=== PATIENT | female | born 1930 | race Caucasian/White ===

== ENCOUNTER 2019-03-15 14:10 | Inpatient (IN) | payer MEDICARE, OTHER ==
[~2019-03-15] VITALS: Ht 154.9 cm; Wt 53.3 kg
[2019-03-15] MEDS ORDERED: IV NORMAL SALINE 1000ML BAG 1,000 ML IV ONE ×2 (15:00→20:30)
[2019-03-15 15:10] LABS: BILIRUBIN,URINE MODERATE (NEG); CLARITY,URINE CLEAR; COLOR,URINE YELLOW; NITRITE,URINE NEGATIVE (NEG); PROTEIN,URINE 30 mg/dL (NEG-TRACE)
[2019-03-15 15:32] LABS: BASO # 0.1 x10^3/uL (0.0-0.2); BASO % 1 % (0-3); EOS % 0 % (0-3); HEMATOCRIT 38.7 % (36.0-47.0); HEMOGLOBIN 12.3 g/dL (12.0-15.5); LYMPH % 10 % (24-48); MEAN CORPUSCULAR HEMOGLOBIN 28 pg (25-35); MEAN CORPUSCULAR HGB CONC 32 g/dL (31-37); MEAN CORPUSCULAR VOLUME 87 fL (79-100); MONO # 0.6 x10^3/uL (0.0-1.1); MONO % 6 % (0-9); NEUT # 8.8 x10^3uL (1.8-7.7); NEUT % 84 % (31-73); PLATELET COUNT 288 x10^3/uL (140-400); RED BLOOD COUNT 4.46 x10^6/uL (3.50-5.40); RED CELL DISTRIBUTION WIDTH 16.4 % (11.5-14.5); WHITE BLOOD COUNT 10.5 x10^3/uL (4.0-11.0)
[2019-03-15 15:33] LABS: INFLUENZA A PATIENT NEGATIVE (NEGATIVE); INFLUENZA B PATIENT NEGATIVE (NEGATIVE)
[2019-03-15 15:35] LABS: RBC,URINE 0 /HPF (0-2)
[2019-03-15 15:36] LABS: BACTERIA,URINE 0 /HPF (0-FEW); SQUAMOUS EPITHELIAL CELL,UR MOD /LPF; WBC,URINE RARE /HPF (0-4)
[2019-03-15 15:45] LABS: CALCIUM 8.9 mg/dL (8.5-10.1); CREATININE 0.9 mg/dL (0.6-1.0); GFR 59.2; POTASSIUM 4.1 mmol/L (3.5-5.1)
--- NOTE | 2019-03-15 15:48 | RAD ---
CHEST AP ONLY History: found on floor. No prior study for comparison. Heart size not enlarged. Aorta is tortuous. There is some retrocardiac density could be the the aorta, or possibly hiatal hernia. Difficult to exclude infiltrate in the medial left lung base. Lungs are otherwise clear without consolidation. No pneumothorax. No pleural effusion. Regional skeleton is grossly intact. IMPRESSION: 1. No definite consolidating infiltrate. 2. Retrocardiac density is nonspecific, could be due to ectatic tortuous aorta or hiatal hernia. Electronically signed by: Luis Antonio Martinez MD (03/15/2019 3:45 PM) [facility]
[2019-03-15 15:52] LABS: ALBUMIN 3.2 g/dL (3.4-5.0); ALBUMIN/GLOBULIN RATIO 0.9 (1.0-1.7); MAGNESIUM 2.7 mg/dL (1.8-2.4); TOTAL PROTEIN 6.7 g/dL (6.4-8.2)
--- NOTE | 2019-03-15 16:20 | RAD ---
Examination: CT HEAD AND CERVICAL SPINE WO History: Found on floor. Altered mental status. Comparison/Correlation: None Findings: Axial images of the head and cervical spine were obtained without contrast. Sagittal and coronal reformatted images of the cervical spine were provided. Atrophy and chronic ischemic changes white matter noted. Small bilateral odin bullosa noted. No depressed skull fracture. Atlantoaxial joint degenerative change is present. Moderate to 4-5 disc space narrowing is present. Neural foramina are patent. Degenerative remodeling of the left temporomandibular joint noted. Soft tissues are unremarkable. Impression: No acute process. Mild degenerative changes of the cervical spine for the patient's age. PQRS Compliance Statement: One or more of the following individualized dose reduction techniques were utilized for this examination: 1. Automated exposure control 2. Adjustment of the mA and/or kV according to patient size 3. Use of iterative reconstruction technique Electronically signed by: Karan Hayden MD (03/15/2019 4:17 PM) [facility]
--- NOTE | 2019-03-15 16:27 | EKG ---
[facility] [address] [place] [address] Test Date: 2019-03-15 Test Time: 15:47:46 Pat Name: VENITA SCHREIBER Department: Room: Gender: F Personal Counselor: : [phone] Requested By: SCTOT KING Order Number: [id number] Reading MD: Deric Fitch Measurements Intervals [place] Rate: 84 P: -34 MT: 166 QRS: -23 QRSD: 86 T: 109 QT: 402 QTc: 479 Interpretive Statements SINUS RHYTHM ATRIAL PREMATURE COMPLEX(ES) LEFTWARD AXIS NONSPECIFIC ST-T WAVE CHANGES. Electronically Signed On 03-21-2019 11:34:17 CDT by Deric Fitch
--- NOTE | 2019-03-15 16:30 | PHYS DOC ---
Past Medical History Past Medical History: No Pertinent History (SCOTT KING APRN) Past Surgical History: No Surgical History (SCOTT KING APRN) Alcohol Use: None Drug Use: None (SCOTT KING APRN) Adult General Chief Complaint Chief Complaint: MECHANICAL FALL HPI HPI 88-year-old female presents to ER via EMS from her residence after being found on the floor by her sister per EMS. No family at bedside at time of arrival and exam. Patient is alert to herself and is repetitively asking for a cup of tea. She is denying any pain. EMS reports sister had found patient this morning and had not seemed patient for approximately 5-7 days. Patient lives at home alone and has no reported past medical history. EMS reported patient was found in urine and feces as she had been incontinent. (SCOTT KING APRN) Review of Systems Review of Systems Unable to obtain review of systems due to patient's current mental status-she is denying any pain however is alert to self only (SCOTT KING APRN) Current Medications Current Medications Current Medications Medications (Trade) Dose Ordered Sig/Dede Start Time Stop Time Status Last Admin Dose Admin Sodium Chloride 1,000 ml @ 1,000 mls/hr 1X ONCE 03/15/19 15:00 03/15/19 15:59 DC 03/15/19 15:06 1,000 MLS/HR (ARELI ALEJANDRE MD) Allergies Allergies Allergies Coded Allergies Type Severity Reaction Last Updated Verified No Known Drug Allergies 03/15/19 No (ARELI ALEJANDRE MD) Physical Exam Physical Exam Constitutional: Frail/fatigued appearance; no acute distress, non-toxic appearance. Strong urine odor on pt. Clear speech HENT: Normocephalic, atraumatic, bilateral ears normal, mucous membranes pale/dr y, no oral injury, nose normal. [] Eyes: 2mm PERRLA, no nystagmus, conjunctiva normal, no discharge. [] Neck: Normal range of motion, no tenderness or palp deformity mid cspine, supple, no stridor. [] Cardiovascular: Heart rate regular rhythm, no murmur [] Lungs & Thorax: Bilateral breath sounds clear to auscultation- resp. equal/nonlabored. No chest tenderness Abdomen: Bowel sounds normal, soft, no tenderness, no masses, no pulsatile masses. [] Skin: Warm, dry, no erythema, no rash. [] Back: No palp deformity of mid line spine- no visible injury, no CVA tenderness. [] Extremities: Pelvis non-tender. No tenderness, no cyanosis, no clubbing, ROM intact- slow purposeful movements, no edema. 2+ bilat. radial/2+ bilat. dorsalis pedis. Ecchymosis to lt lateral shoulder/elbow- full ROM of both sites. No palp. deformity Neurologic: Alert and oriented X 1, normal motor function, normal sensory functi on, no focal deficits noted. [] Psychologic: Affect normal, mood normal- no anxiety/restlessness. [] (REFFITT,SCOTT Fiore APRN) Current Patient Data Vital Signs Vital Signs Date Time Temp Pulse Resp B/P (MAP) Pulse Ox O2 Delivery O2 Flow Rate FiO2 03/15/19 14:10 97.6 98 16 104/76 (85) 97 Room Air 97.6 (ARELI ALEJANDRE MD) Lab Values Laboratory Tests Test 03/15/19 14:59 03/15/19 15:02 03/15/19 15:20 Sodium Level 146 mmol/L (136-145) H Potassium Level 4.1 mmol/L (3.5-5.1) Chloride Level 104 mmol/L (98-107) Carbon Dioxide Level 24 mmol/L (21-32) Anion Gap 18 (6-14) H Blood Urea Nitrogen 50 mg/dL (7-20) H Creatinine 0.9 mg/dL (0.6-1.0) Estimated GFR (Cockcroft-Gault) 59.2 BUN/Creatinine Ratio 56 (6-20) H Glucose Level 141 mg/dL (70-99) H Calcium Level 8.9 mg/dL (8.5-10.1) Magnesium Level 2.7 mg/dL (1.8-2.4) H Total Bilirubin 1.0 mg/dL (0.2-1.0) Aspartate Amino Transferase (AST) 49 U/L (15-37) H Alanine Aminotransferase (ALT) 37 U/L (14-59) Alkaline Phosphatase 141 U/L (46-116) H Creatine Kinase 210 U/L (26-192) H Creatine Kinase MB (Mass) 5.8 ng/mL (0.0-3.6) H Creatine Kinase MB Relative Index 2.8 % (0-4) Total Protein 6.7 g/dL (6.4-8.2) Albumin 3.2 g/dL (3.4-5.0) L Albumin/Globulin Ratio 0.9 (1.0-1.7) L Urine Collection Type U cath Urine Color Yellow Urine Clarity Clear Urine pH 6.0 Urine Specific [place] 1.025 Urine Protein 30 mg/dL (NEG-TRACE) Urine Glucose (UA) Negative mg/dL (NEG) Urine Ketones (Stick) 40 mg/dL (NEG) Urine Blood Negative (NEG) Urine Nitrite Negative (NEG) Urine Bilirubin Moderate (NEG) Urine Urobilinogen Dipstick 1.0 mg/dL (0.2 mg/dL) Urine Leukocyte Esterase Negative (NEG) Urine RBC 0 /HPF (0-2) Urine WBC Rare /HPF (0-4) Urine Squamous Epithelial Cells Mod /LPF Urine Bacteria 0 /HPF (0-FEW) Urine Mucus Mod /LPF Influenza Type A Antigen Negative (NEGATIVE) Influenza Type B Antigen Negative (NEGATIVE) White Blood Count 10.5 x10^3/uL (4.0-11.0) Red Blood Count 4.46 x10^6/uL (3.50-5.40) Hemoglobin 12.3 g/dL (12.0-15.5) Hematocrit 38.7 % (36.0-47.0) Mean Corpuscular Volume 87 fL (79-100) Mean Corpuscular Hemoglobin 28 pg (25-35) Mean Corpuscular Hemoglobin Concent 32 g/dL (31-37) Red Cell Distribution Width 16.4 % (11.5-14.5) H Platelet Count 288 x10^3/uL (140-400) Neutrophils (%) (Auto) 84 % (31-73) H Lymphocytes (%) (Auto) 10 % (24-48) L Monocytes (%) (Auto) 6 % (0-9) Eosinophils (%) (Auto) 0 % (0-3) Basophils (%) (Auto) 1 % (0-3) Neutrophils # (Auto) 8.8 x10^3uL (1.8-7.7) H Lymphocytes # (Auto) 1.0 x10^3/uL (1.0-4.8) Monocytes # (Auto) 0.6 x10^3/uL (0.0-1.1) Eosinophils # (Auto) 0.0 x10^3/uL (0.0-0.7) Basophils # (Auto) 0.1 x10^3/uL (0.0-0.2) Lactic Acid Level 1.7 mmol/L (0.4-2.0) Troponin I Quantitative 0.027 ng/mL (0.000-0.055) Laboratory Tests 03/15/19 15:20 Laboratory Tests 03/15/19 14:59 (ARELI ALEJANDRE MD) EKG EKG EKG obtained 03/15/19 at [address] Alejandre Sinus rhythm PVCs Ltward axis Rate 84 No STEMI (REFFITT,SCOTT Fiore APRN) Radiology/Procedures Radiology/Procedures PROCEDURE: CHEST AP ONLY CHEST AP ONLY History: found on floor. No prior study for comparison. Heart size not enlarged. Aorta is tortuous. There is some retrocardiac density could be the the aorta, or possibly hiatal hernia. Difficult to exclude infiltrate in the medial left lung base. Lungs are otherwise clear without consolidation. No pneumothorax. No pleural effusion. Regional skeleton is grossly intact. IMPRESSION: 1. No definite consolidating infiltrate. 2. Retrocardiac density is nonspecific, could be due to ectatic tortuous aorta or hiatal hernia. Electronically signed by: Luis Antonio Martinez MD (03/15/2019 3:45 PM) [facility] DICTATED and SIGNED BY: LUIS ANTONIO MARTINEZ MD DATE: 03/15/19 1546 PROCEDURE: CT HEAD AND CERVICAL SPINE WO Examination: CT HEAD AND CERVICAL SPINE WO History: Found on floor. Altered mental status. Comparison/Correlation: None Findings: Axial images of the head and cervical spine were obtained without contrast. Sagittal and coronal reformatted images of the cervical spine were provided. Atrophy and chronic ischemic changes white matter noted. Small bilateral odin bullosa noted. No depressed skull fracture. Atlantoaxial joint degenerative change is present. Moderate to 4-5 disc space narrowing is present. Neural foramina are patent. Degenerative remodeling of the left temporomandibular joint noted. Soft tissues are unremarkable. Impression: No acute process. Mild degenerative changes of the cervical spine for the patient's age. PQRS Compliance Statement: One or more of the following individualized dose reduction techniques were utilized for this examination: 1. Automated exposure control 2. Adjustment of the mA and/or kV according to patient size 3. Use of iterative reconstruction technique Electronically signed by: Karan Lemon MD (03/15/2019 4:17 PM) [facility] DICTATED and SIGNED BY: KARAN LEMON MD DATE: 03/15/19 1617 (SCOTT KING APRN) Course & Med Decision Making Course & Med Decision Making Pertinent Labs and Imaging studies reviewed. (See chart for details) 1550: Pt was evaluated in the ER after she was found on the floor by her friend and had change in mental status. Patient had CT, x-ray, and labs obtained. EKG with no acute ST elevation or STEMI and troponin was 0.027- CK was slightly elevated at 210. WBCs and lactic acid normal limits. Cr NL at 0.9. No infection on UA. Head and C-spine imaging when no acute findings. Pt was given IV fluid bolus while in the ER and her vital signs have been stable. Spoke with Dr. Malcolm, hospitalist and discussed pt's case and admit plan. Will admit to their services for further monitoring and care. Will consult neurology with admit orde rs. Pt has had no change in MS while in the ER- she is alert to self and continues to deny any pain. She has had ROM in all extremities w/slow purposeful movements. She has had no focal weakness. RN reported pt's friend had arrived and she isn't pt's sister she is a close friend and she reported pt is on no daily medications and has no past med hx. She reports pt is independent living and typically A&Ox3. This provider went to room to discuss pt's case with pt's friend and she was not in room. Swallow screen study performed at bedside by RN while in the ER and she reported patient was able to drink fluids without choking, coughing, or difficulty swallowing. Will place order for cardiac diet with admit orders. (SCOTT KING APRN) Course & Med Decision Making I was available for consultation regarding this patient's care. I did not see or evaluate the patient unless otherwise specified. (ARELI ALEJANDRE MD) Dragon Disclaimer Dragon Disclaimer This electronic medical record was generated, in whole or in part, using a voice recognition dictation system. (SCOTT KING APRN) Departure Departure Impression: Primary Impression: Altered mental status Disposition: 09 ADMITTED INPATIENT Admitting Physician: Loyda Malcolm (SCOTT KING APRN) Condition: STABLE Referrals: UNKNOWN PCP NAME (PCP) SCOTT KING APRN Mar 15, 2019 16:30 ARELI ALEJANDRE MD Mar 15, 2019 18:05
--- NOTE | 2019-03-15 18:35 | NUR ---
The patient, VENITA SCHREIBER, 88 y/o, F admitted by CLARI SETH MD, was given written information regarding hospital policies, unit procedures and contact persons. Pt was oriented to the room, given water and hot tea w/sugar, and educated national insurance officer light, hospital policies and protocols. Valuables were not checked at time of arrival to floor, as patient required assistance to transfer and to remain comfortable. VS stable, report given to plant operator/shift supervisor YOVANI Henry at bedside while pt was settling in.
[2019-03-15 18:42] VITALS: BP 131/62
[2019-03-15 19:23] VITALS: BP 108/46
--- NOTE | 2019-03-15 20:22 | PDOC1 ---
History and Physical Date of Admission Date of Admission DATE: 03/15/19 TIME: 20:15 Source Source: Chart review, Patient History of Present Illness History of Present Illness Apolonia is a 88-year-old female presents to ER via EMS from her residence after being "found on the floor by her sister" per EMS. However, she tells me that she has no sister. She is unsure of the date or where she is or her age, she is correct on her name only, she has a complaint of right leg pain, but asked for tea and cheese and crackers. she lives alone at home and may have been down for days, unsure of timeline, she has been cleaned since appearing in ER, she was covered in excrement when she arrived. Past Medical History Cardiovascular: No pertinent hx Endocrine: Diabetes Dermatology: No pertinent hx Family History Family History: Family History Unknown Social History Smoke: No ALCOHOL: none Current Problem List Problem List Problems Medical Problems: (1) Altered mental status Status: Acute Current Medications Current Medications Current Medications Sodium Chloride 1,000 ml @ 1,000 mls/hr 1X ONCE IV Last administered on 03/15/19at 15:06; Start 03/15/19 at 15:00; Stop 03/15/19 at 15:59; Status DC Allergies Allergies: Coded Allergies: No Known Drug Allergies (Unverified , 03/15/19) ROS Review of System unable, dementia Physical Exam General: Alert, Cooperative, Other (confused, not oriented) HEENT: PERRLA, EOMI Lungs: Clear to auscultation, Normal air movement Heart: no gallops, no murmurs Abdomen: Soft Rectal Exam: not examined Extremities: No clubbing, No edema Skin: No significant lesion Neuro: Normal speech, Sensation intact, Cranial nerves 3-12 NL Vitals Vitals Vital Signs Date Time Temp Pulse Resp B/P (MAP) Pulse Ox O2 Delivery O2 Flow Rate FiO2 03/15/19 19:23 98.2 85 16 108/46 (66) 95 Room Air 98.2 Labs Labs Laboratory Tests Test 03/15/19 14:59 03/15/19 15:02 03/15/19 15:20 03/15/19 18:30 Sodium Level 146 mmol/L (136-145) Potassium Level 4.1 mmol/L (3.5-5.1) Chloride Level 104 mmol/L (98-107) Carbon Dioxide Level 24 mmol/L (21-32) Anion Gap 18 (6-14) Blood Urea Nitrogen 50 mg/dL (7-20) Creatinine 0.9 mg/dL (0.6-1.0) Estimated GFR (Cockcroft-Gault) 59.2 BUN/Creatinine Ratio 56 (6-20) Glucose Level 141 mg/dL (70-99) Calcium Level 8.9 mg/dL (8.5-10.1) Magnesium Level 2.7 mg/dL (1.8-2.4) Total Bilirubin 1.0 mg/dL (0.2-1.0) Aspartate Amino Transf (AST/SGOT) 49 U/L (15-37) Alanine Aminotransferase (ALT/SGPT) 37 U/L (14-59) Alkaline Phosphatase 141 U/L (46-116) Creatine Kinase 210 U/L (26-192) Creatine Kinase MB (Mass) 5.8 ng/mL (0.0-3.6) Creatine Kinase MB Relative Index 2.8 % (0-4) Total Protein 6.7 g/dL (6.4-8.2) Albumin 3.2 g/dL (3.4-5.0) Albumin/Globulin Ratio 0.9 (1.0-1.7) Urine Collection Type U cath Urine Color Yellow Urine Clarity Clear Urine pH 6.0 Urine Specific [place] 1.025 Urine Protein 30 mg/dL (NEG-TRACE) Urine Glucose (UA) Negative mg/dL (NEG) Urine Ketones (Stick) 40 mg/dL (NEG) Urine Blood Negative (NEG) Urine Nitrite Negative (NEG) Urine Bilirubin Moderate (NEG) Urine Urobilinogen Dipstick 1.0 mg/dL (0.2 mg/dL) Urine Leukocyte Esterase Negative (NEG) Urine RBC 0 /HPF (0-2) Urine WBC Rare /HPF (0-4) Urine Squamous Epithelial Cells Mod /LPF Urine Bacteria 0 /HPF (0-FEW) Urine Mucus Mod /LPF Influenza Type A Antigen Negative (NEGATIVE) Influenza Type B Antigen Negative (NEGATIVE) White Blood Count 10.5 x10^3/uL (4.0-11.0) Red Blood Count 4.46 x10^6/uL (3.50-5.40) Hemoglobin 12.3 g/dL (12.0-15.5) Hematocrit 38.7 % (36.0-47.0) Mean Corpuscular Volume 87 fL (79-100) Mean Corpuscular Hemoglobin 28 pg (25-35) Mean Corpuscular Hemoglobin Concent 32 g/dL (31-37) Red Cell Distribution Width 16.4 % (11.5-14.5) Platelet Count 288 x10^3/uL (140-400) Neutrophils (%) (Auto) 84 % (31-73) Lymphocytes (%) (Auto) 10 % (24-48) Monocytes (%) (Auto) 6 % (0-9) Eosinophils (%) (Auto) 0 % (0-3) Basophils (%) (Auto) 1 % (0-3) Neutrophils # (Auto) 8.8 x10^3uL (1.8-7.7) Lymphocytes # (Auto) 1.0 x10^3/uL (1.0-4.8) Monocytes # (Auto) 0.6 x10^3/uL (0.0-1.1) Eosinophils # (Auto) 0.0 x10^3/uL (0.0-0.7) Basophils # (Auto) 0.1 x10^3/uL (0.0-0.2) Lactic Acid Level 1.7 mmol/L (0.4-2.0) Troponin I Quantitative 0.027 ng/mL (0.000-0.055) Glucose (Fingerstick) 388 mg/dL (70-99) Laboratory Tests Test 03/15/19 14:59 03/15/19 15:02 03/15/19 15:20 03/15/19 18:30 Sodium Level 146 mmol/L (136-145) Potassium Level 4.1 mmol/L (3.5-5.1) Chloride Level 104 mmol/L (98-107) Carbon Dioxide Level 24 mmol/L (21-32) Anion Gap 18 (6-14) Blood Urea Nitrogen 50 mg/dL (7-20) Creatinine 0.9 mg/dL (0.6-1.0) Estimated GFR (Cockcroft-Gault) 59.2 BUN/Creatinine Ratio 56 (6-20) Glucose Level 141 mg/dL (70-99) Calcium Level 8.9 mg/dL (8.5-10.1) Magnesium Level 2.7 mg/dL (1.8-2.4) Total Bilirubin 1.0 mg/dL (0.2-1.0) Aspartate Amino Transf (AST/SGOT) 49 U/L (15-37) Alanine Aminotransferase (ALT/SGPT) 37 U/L (14-59) Alkaline Phosphatase 141 U/L (46-116) Creatine Kinase 210 U/L (26-192) Creatine Kinase MB (Mass) 5.8 ng/mL (0.0-3.6) Creatine Kinase MB Relative Index 2.8 % (0-4) Total Protein 6.7 g/dL (6.4-8.2) Albumin 3.2 g/dL (3.4-5.0) Albumin/Globulin Ratio 0.9 (1.0-1.7) Urine Collection Type U cath Urine Color Yellow Urine Clarity Clear Urine pH 6.0 Urine Specific [place] 1.025 Urine Protein 30 mg/dL (NEG-TRACE) Urine Glucose (UA) Negative mg/dL (NEG) Urine Ketones (Stick) 40 mg/dL (NEG) Urine Blood Negative (NEG) Urine Nitrite Negative (NEG) Urine Bilirubin Moderate (NEG) Urine Urobilinogen Dipstick 1.0 mg/dL (0.2 mg/dL) Urine Leukocyte Esterase Negative (NEG) Urine RBC 0 /HPF (0-2) Urine WBC Rare /HPF (0-4) Urine Squamous Epithelial Cells Mod /LPF Urine Bacteria 0 /HPF (0-FEW) Urine Mucus Mod /LPF Influenza Type A Antigen Negative (NEGATIVE) Influenza Type B Antigen Negative (NEGATIVE) White Blood Count 10.5 x10^3/uL (4.0-11.0) Red Blood Count 4.46 x10^6/uL (3.50-5.40) Hemoglobin 12.3 g/dL (12.0-15.5) Hematocrit 38.7 % (36.0-47.0) Mean Corpuscular Volume 87 fL (79-100) Mean Corpuscular Hemoglobin 28 pg (25-35) Mean Corpuscular Hemoglobin Concent 32 g/dL (31-37) Red Cell Distribution Width 16.4 % (11.5-14.5) Platelet Count 288 x10^3/uL (140-400) Neutrophils (%) (Auto) 84 % (31-73) Lymphocytes (%) (Auto) 10 % (24-48) Monocytes (%) (Auto) 6 % (0-9) Eosinophils (%) (Auto) 0 % (0-3) Basophils (%) (Auto) 1 % (0-3) Neutrophils # (Auto) 8.8 x10^3uL (1.8-7.7) Lymphocytes # (Auto) 1.0 x10^3/uL (1.0-4.8) Monocytes # (Auto) 0.6 x10^3/uL (0.0-1.1) Eosinophils # (Auto) 0.0 x10^3/uL (0.0-0.7) Basophils # (Auto) 0.1 x10^3/uL (0.0-0.2) Lactic Acid Level 1.7 mmol/L (0.4-2.0) Troponin I Quantitative 0.027 ng/mL (0.000-0.055) Glucose (Fingerstick) 388 mg/dL (70-99) VTE Prophylaxis Ordered VTE Prophylaxis Devices: No VTE Pharmacological Prophylaxi: Yes Assessment/Plan Assessment/Plan found down right leg pain, PT and ot and pain control dementia, atrophy and chronic ischemic change on CT scan thrush unsafe at home, CLARI Winter MD Mar 15, 2019 20:22
[2019-03-15] MEDS ORDERED: IBUPROFEN 400 MG TABLET. PO PRN (20:30)
[2019-03-15] MEDS ORDERED: ACETAMINOPHEN 325 MG TABLET. PO PRN (20:30)
[2019-03-15] MEDS ORDERED: DEXTROSE 50% 25 GM / 50ML DISP.SYRIN. IV PRN (20:30)
[2019-03-15] MEDS: INSULIN GLARGINE 300 UNITS/3 ML INSULN.PEN. SQ SCH (21:00)
[2019-03-15] MEDS: PATCH REMOVAL. MC SCH (21:00)
[2019-03-15] MEDS: CLOTRIMAZOLE 10 MG TROCHE. MM SCH (22:11)
[2019-03-15 23:20] VITALS: BP 104/48
--- NOTE | 2019-03-16 00:23 | NUR ---
Assumed care of patient at 1838. VS stable, assessment complete- bruise to left elbow, left shoulder, and right thigh. patient states she has no medical history and takes no medications at home. Patient complains of bilateral chronic knee pain-but states " i do not take any medications, not even for pain, pills scare me". Pt states she has no support system but has a friend that comes over to check on her every now and then. Upon arrival patients hair was matted to head and had lots of debris in it. Patient stated "when i fell i wasn't able to brush my teeth or hair because i couldn't get up" when asked how long she had been on the ground she stated "i don't know". This RN bathed patient and attempted to wash hair and brush out some of the matted areas. Patient stated repeatedly " i am sorry im such a nuisance" reassured patient that she was not a nuisance re oriented patient to room and explained how to call for assistance. bed in low locked position, bed alarm on, call light with in reach.
[2019-03-16 03:18] VITALS: BP 145/49
[2019-03-16 05:56] LABS: BASO # 0.1 x10^3/uL (0.0-0.2); BASO % 1 % (0-3); EOS # 0.1 x10^3/uL (0.0-0.7); EOS % 1 % (0-3); LYMPH # 1.6 x10^3/uL (1.0-4.8); LYMPH % 19 % (24-48); MEAN CORPUSCULAR HEMOGLOBIN 28 pg (25-35); MEAN CORPUSCULAR HGB CONC 32 g/dL (31-37); MEAN CORPUSCULAR VOLUME 87 fL (79-100); MONO # 0.6 x10^3/uL (0.0-1.1); MONO % 7 % (0-9); NEUT # 6.4 x10^3uL (1.8-7.7); NEUT % 72 % (31-73); PLATELET COUNT 256 x10^3/uL (140-400); RED BLOOD COUNT 3.93 x10^6/uL (3.50-5.40); RED CELL DISTRIBUTION WIDTH 16.5 % (11.5-14.5); WHITE BLOOD COUNT 8.8 x10^3/uL (4.0-11.0)
[2019-03-16] MEDS: CLOTRIMAZOLE 10 MG TROCHE. MM SCH ×5 (06:00→21:52)
[2019-03-16 06:02] LABS: ALBUMIN 2.7 g/dL (3.4-5.0); ALBUMIN/GLOBULIN RATIO 0.8 (1.0-1.7); CALCIUM 8.3 mg/dL (8.5-10.1); CREATININE 0.8 mg/dL (0.6-1.0); GFR 67.8; POTASSIUM 3.5 mmol/L (3.5-5.1); TOTAL BILIRUBIN 0.8 mg/dL (0.2-1.0); TOTAL PROTEIN 6.2 g/dL (6.4-8.2)
[2019-03-16 07:00] VITALS: BP 143/64
[2019-03-16] MEDS: INSULIN LISPRO 300 UNITS/3 ML INSULN.PEN. SQ SCH ×3 (08:00→17:00)
[2019-03-16] MEDS ORDERED: ONDANSETRON PF 4 MG/2 ML VIAL. IV PRN (08:45)
[2019-03-16] MEDS ORDERED: ACETAMINOPHEN 500 MG TABLET PO PRN (08:45)
[2019-03-16] MEDS ORDERED: ONDANSETRON ODT 4 MG TAB.RAPDIS. PO PRN (08:45)
[2019-03-16] MEDS: LIDOCAINE (700MG/PATCH) PATCH. TD SCH (09:00)
--- NOTE | 2019-03-16 10:00 | NUR ---
PATIENT REFUSED ALL MEDS.
--- NOTE | 2019-03-16 10:53 | PDOC ---
PROGRESS NOTES Chief Complaint Chief Complaint Noninjury fall at home-covered in excrement Encephalopathy, I think this is her baseline-alert and oriented to place and self but cannot answer complicated questions thoroughly No home meds to reconcile Thrush, oral Unsafe home History of Present Illness History of Present Illness She is alert and oriented to self and place but once I ask her, complicated questions, she is not accurate She does not complain of anything except she wants to go home She might need encouraging to go to rehabilitation Social work has been consulted So far lytes and imaging reassuring Plan: social work for placement-unsafe at home I'm unsure why she is CVC can transfer out of CVC Other supportive meds Can check a CPK rule out rhabdo Vitals Vitals Vital Signs Date Time Temp Pulse Resp B/P (MAP) Pulse Ox O2 Delivery O2 Flow Rate FiO2 03/16/19 08:00 Room Air 03/16/19 07:00 98.0 76 14 143/64 (90) 94 98.0 Physical Exam General: Alert, Cooperative, Other (confused, not oriented) Heart: Regular rate, Normal S1, Normal S2 Lungs: Other (poor effort decreased breath sounds) Abdomen: Soft Extremities: No clubbing, No edema Skin: No significant lesion Labs LABS Laboratory Tests Test 03/15/19 14:59 03/15/19 15:02 03/15/19 15:20 03/15/19 18:30 Sodium Level 146 mmol/L (136-145) Potassium Level 4.1 mmol/L (3.5-5.1) Chloride Level 104 mmol/L (98-107) Carbon Dioxide Level 24 mmol/L (21-32) Anion Gap 18 (6-14) Blood Urea Nitrogen 50 mg/dL (7-20) Creatinine 0.9 mg/dL (0.6-1.0) Estimated GFR (Cockcroft-Gault) 59.2 BUN/Creatinine Ratio 56 (6-20) Glucose Level 141 mg/dL (70-99) Calcium Level 8.9 mg/dL (8.5-10.1) Magnesium Level 2.7 mg/dL (1.8-2.4) Total Bilirubin 1.0 mg/dL (0.2-1.0) Aspartate Amino Transf (AST/SGOT) 49 U/L (15-37) Alanine Aminotransferase (ALT/SGPT) 37 U/L (14-59) Alkaline Phosphatase 141 U/L (46-116) Creatine Kinase 210 U/L (26-192) Creatine Kinase MB (Mass) 5.8 ng/mL (0.0-3.6) Creatine Kinase MB Relative Index 2.8 % (0-4) Total Protein 6.7 g/dL (6.4-8.2) Albumin 3.2 g/dL (3.4-5.0) Albumin/Globulin Ratio 0.9 (1.0-1.7) Urine Collection Type U cath Urine Color Yellow Urine Clarity Clear Urine pH 6.0 Urine Specific [place] 1.025 Urine Protein 30 mg/dL (NEG-TRACE) Urine Glucose (UA) Negative mg/dL (NEG) Urine Ketones (Stick) 40 mg/dL (NEG) Urine Blood Negative (NEG) Urine Nitrite Negative (NEG) Urine Bilirubin Moderate (NEG) Urine Urobilinogen Dipstick 1.0 mg/dL (0.2 mg/dL) Urine Leukocyte Esterase Negative (NEG) Urine RBC 0 /HPF (0-2) Urine WBC Rare /HPF (0-4) Urine Squamous Epithelial Cells Mod /LPF Urine Bacteria 0 /HPF (0-FEW) Urine Mucus Mod /LPF Influenza Type A Antigen Negative (NEGATIVE) Influenza Type B Antigen Negative (NEGATIVE) White Blood Count 10.5 x10^3/uL (4.0-11.0) Red Blood Count 4.46 x10^6/uL (3.50-5.40) Hemoglobin 12.3 g/dL (12.0-15.5) Hematocrit 38.7 % (36.0-47.0) Mean Corpuscular Volume 87 fL (79-100) Mean Corpuscular Hemoglobin 28 pg (25-35) Mean Corpuscular Hemoglobin Concent 32 g/dL (31-37) Red Cell Distribution Width 16.4 % (11.5-14.5) Platelet Count 288 x10^3/uL (140-400) Neutrophils (%) (Auto) 84 % (31-73) Lymphocytes (%) (Auto) 10 % (24-48) Monocytes (%) (Auto) 6 % (0-9) Eosinophils (%) (Auto) 0 % (0-3) Basophils (%) (Auto) 1 % (0-3) Neutrophils # (Auto) 8.8 x10^3uL (1.8-7.7) Lymphocytes # (Auto) 1.0 x10^3/uL (1.0-4.8) Monocytes # (Auto) 0.6 x10^3/uL (0.0-1.1) Eosinophils # (Auto) 0.0 x10^3/uL (0.0-0.7) Basophils # (Auto) 0.1 x10^3/uL (0.0-0.2) Lactic Acid Level 1.7 mmol/L (0.4-2.0) Troponin I Quantitative 0.027 ng/mL (0.000-0.055) Glucose (Fingerstick) 388 mg/dL (70-99) Test 03/15/19 21:46 03/16/19 04:45 03/16/19 07:39 Glucose (Fingerstick) 123 mg/dL (70-99) 94 mg/dL (70-99) White Blood Count 8.8 x10^3/uL (4.0-11.0) Red Blood Count 3.93 x10^6/uL (3.50-5.40) Hemoglobin 11.0 g/dL (12.0-15.5) Hematocrit 34.0 % (36.0-47.0) Mean Corpuscular Volume 87 fL (79-100) Mean Corpuscular Hemoglobin 28 pg (25-35) Mean Corpuscular Hemoglobin Concent 32 g/dL (31-37) Red Cell Distribution Width 16.5 % (11.5-14.5) Platelet Count 256 x10^3/uL (140-400) Neutrophils (%) (Auto) 72 % (31-73) Lymphocytes (%) (Auto) 19 % (24-48) Monocytes (%) (Auto) 7 % (0-9) Eosinophils (%) (Auto) 1 % (0-3) Basophils (%) (Auto) 1 % (0-3) Neutrophils # (Auto) 6.4 x10^3uL (1.8-7.7) Lymphocytes # (Auto) 1.6 x10^3/uL (1.0-4.8) Monocytes # (Auto) 0.6 x10^3/uL (0.0-1.1) Eosinophils # (Auto) 0.1 x10^3/uL (0.0-0.7) Basophils # (Auto) 0.1 x10^3/uL (0.0-0.2) Sodium Level 142 mmol/L (136-145) Potassium Level 3.5 mmol/L (3.5-5.1) Chloride Level 108 mmol/L (98-107) Carbon Dioxide Level 25 mmol/L (21-32) Anion Gap 9 (6-14) Blood Urea Nitrogen 42 mg/dL (7-20) Creatinine 0.8 mg/dL (0.6-1.0) Estimated GFR (Cockcroft-Gault) 67.8 BUN/Creatinine Ratio 53 (6-20) Glucose Level 104 mg/dL (70-99) Calcium Level 8.3 mg/dL (8.5-10.1) Total Bilirubin 0.8 mg/dL (0.2-1.0) Aspartate Amino Transf (AST/SGOT) 40 U/L (15-37) Alanine Aminotransferase (ALT/SGPT) 26 U/L (14-59) Alkaline Phosphatase 109 U/L (46-116) Total Protein 6.2 g/dL (6.4-8.2) Albumin 2.7 g/dL (3.4-5.0) Albumin/Globulin Ratio 0.8 (1.0-1.7) Review of Systems Review of Systems A 14 point ROS was completed with the following noted as positive: Other systems reviewed and negative. \CONSTITUTIONAL: No fever or chills EYES: No recent changes SKIN: No rash or itching CARDIOVASCULAR: No chest pain, syncope, palpitations, or edema RESPIRATORY: No SOB or cough GASTROINTESTINAL: No nausea, vomiting or abdominal pain NEUROLOGICAL: No headaches or weakness ENDOCRINE: No cold or heat intolerance GENITOURINARY: No urgency or frequency of urination MUSCULOSKELETAL: No back pain or joint pain LYMPHATICS: No enlarged lymph nodes PSYCHIATRIC: No anxiety or depression Assessment and Plan Assessmemt and Plan Problems Medical Problems: (1) Altered mental status Status: Acute Comment Review of Relevant I have reviewed the following items licha (where applicable) has been applied. Labs Laboratory Tests Test 03/15/19 14:59 03/15/19 15:02 03/15/19 15:20 03/15/19 18:30 Sodium Level 146 mmol/L (136-145) Potassium Level 4.1 mmol/L (3.5-5.1) Chloride Level 104 mmol/L (98-107) Carbon Dioxide Level 24 mmol/L (21-32) Anion Gap 18 (6-14) Blood Urea Nitrogen 50 mg/dL (7-20) Creatinine 0.9 mg/dL (0.6-1.0) Estimated GFR (Cockcroft-Gault) 59.2 BUN/Creatinine Ratio 56 (6-20) Glucose Level 141 mg/dL (70-99) Calcium Level 8.9 mg/dL (8.5-10.1) Magnesium Level 2.7 mg/dL (1.8-2.4) Total Bilirubin 1.0 mg/dL (0.2-1.0) Aspartate Amino Transf (AST/SGOT) 49 U/L (15-37) Alanine Aminotransferase (ALT/SGPT) 37 U/L (14-59) Alkaline Phosphatase 141 U/L (46-116) Creatine Kinase 210 U/L (26-192) Creatine Kinase MB (Mass) 5.8 ng/mL (0.0-3.6) Creatine Kinase MB Relative Index 2.8 % (0-4) Total Protein 6.7 g/dL (6.4-8.2) Albumin 3.2 g/dL (3.4-5.0) Albumin/Globulin Ratio 0.9 (1.0-1.7) Urine Collection Type U cath Urine Color Yellow Urine Clarity Clear Urine pH 6.0 Urine Specific [place] 1.025 Urine Protein 30 mg/dL (NEG-TRACE) Urine Glucose (UA) Negative mg/dL (NEG) Urine Ketones (Stick) 40 mg/dL (NEG) Urine Blood Negative (NEG) Urine Nitrite Negative (NEG) Urine Bilirubin Moderate (NEG) Urine Urobilinogen Dipstick 1.0 mg/dL (0.2 mg/dL) Urine Leukocyte Esterase Negative (NEG) Urine RBC 0 /HPF (0-2) Urine WBC Rare /HPF (0-4) Urine Squamous Epithelial Cells Mod /LPF Urine Bacteria 0 /HPF (0-FEW) Urine Mucus Mod /LPF Influenza Type A Antigen Negative (NEGATIVE) Influenza Type B Antigen Negative (NEGATIVE) White Blood Count 10.5 x10^3/uL (4.0-11.0) Red Blood Count 4.46 x10^6/uL (3.50-5.40) Hemoglobin 12.3 g/dL (12.0-15.5) Hematocrit 38.7 % (36.0-47.0) Mean Corpuscular Volume 87 fL (79-100) Mean Corpuscular Hemoglobin 28 pg (25-35) Mean Corpuscular Hemoglobin Concent 32 g/dL (31-37) Red Cell Distribution Width 16.4 % (11.5-14.5) Platelet Count 288 x10^3/uL (140-400) Neutrophils (%) (Auto) 84 % (31-73) Lymphocytes (%) (Auto) 10 % (24-48) Monocytes (%) (Auto) 6 % (0-9) Eosinophils (%) (Auto) 0 % (0-3) Basophils (%) (Auto) 1 % (0-3) Neutrophils # (Auto) 8.8 x10^3uL (1.8-7.7) Lymphocytes # (Auto) 1.0 x10^3/uL (1.0-4.8) Monocytes # (Auto) 0.6 x10^3/uL (0.0-1.1) Eosinophils # (Auto) 0.0 x10^3/uL (0.0-0.7) Basophils # (Auto) 0.1 x10^3/uL (0.0-0.2) Lactic Acid Level 1.7 mmol/L (0.4-2.0) Troponin I Quantitative 0.027 ng/mL (0.000-0.055) Glucose (Fingerstick) 388 mg/dL (70-99) Test 03/15/19 21:46 03/16/19 04:45 03/16/19 07:39 Glucose (Fingerstick) 123 mg/dL (70-99) 94 mg/dL (70-99) White Blood Count 8.8 x10^3/uL (4.0-11.0) Red Blood Count 3.93 x10^6/uL (3.50-5.40) Hemoglobin 11.0 g/dL (12.0-15.5) Hematocrit 34.0 % (36.0-47.0) Mean Corpuscular Volume 87 fL (79-100) Mean Corpuscular Hemoglobin 28 pg (25-35) Mean Corpuscular Hemoglobin Concent 32 g/dL (31-37) Red Cell Distribution Width 16.5 % (11.5-14.5) Platelet Count 256 x10^3/uL (140-400) Neutrophils (%) (Auto) 72 % (31-73) Lymphocytes (%) (Auto) 19 % (24-48) Monocytes (%) (Auto) 7 % (0-9) Eosinophils (%) (Auto) 1 % (0-3) Basophils (%) (Auto) 1 % (0-3) Neutrophils # (Auto) 6.4 x10^3uL (1.8-7.7) Lymphocytes # (Auto) 1.6 x10^3/uL (1.0-4.8) Monocytes # (Auto) 0.6 x10^3/uL (0.0-1.1) Eosinophils # (Auto) 0.1 x10^3/uL (0.0-0.7) Basophils # (Auto) 0.1 x10^3/uL (0.0-0.2) Sodium Level 142 mmol/L (136-145) Potassium Level 3.5 mmol/L (3.5-5.1) Chloride Level 108 mmol/L (98-107) Carbon Dioxide Level 25 mmol/L (21-32) Anion Gap 9 (6-14) Blood Urea Nitrogen 42 mg/dL (7-20) Creatinine 0.8 mg/dL (0.6-1.0) Estimated GFR (Cockcroft-Gault) 67.8 BUN/Creatinine Ratio 53 (6-20) Glucose Level 104 mg/dL (70-99) Calcium Level 8.3 mg/dL (8.5-10.1) Total Bilirubin 0.8 mg/dL (0.2-1.0) Aspartate Amino Transf (AST/SGOT) 40 U/L (15-37) Alanine Aminotransferase (ALT/SGPT) 26 U/L (14-59) Alkaline Phosphatase 109 U/L (46-116) Total Protein 6.2 g/dL (6.4-8.2) Albumin 2.7 g/dL (3.4-5.0) Albumin/Globulin Ratio 0.8 (1.0-1.7) Laboratory Tests Test 03/15/19 14:59 03/15/19 15:02 03/15/19 15:20 03/15/19 18:30 Sodium Level 146 mmol/L (136-145) Potassium Level 4.1 mmol/L (3.5-5.1) Chloride Level 104 mmol/L (98-107) Carbon Dioxide Level 24 mmol/L (21-32) Anion Gap 18 (6-14) Blood Urea Nitrogen 50 mg/dL (7-20) Creatinine 0.9 mg/dL (0.6-1.0) Estimated GFR (Cockcroft-Gault) 59.2 BUN/Creatinine Ratio 56 (6-20) Glucose Level 141 mg/dL (70-99) Calcium Level 8.9 mg/dL (8.5-10.1) Magnesium Level 2.7 mg/dL (1.8-2.4) Total Bilirubin 1.0 mg/dL (0.2-1.0) Aspartate Amino Transf (AST/SGOT) 49 U/L (15-37) Alanine Aminotransferase (ALT/SGPT) 37 U/L (14-59) Alkaline Phosphatase 141 U/L (46-116) Creatine Kinase 210 U/L (26-192) Creatine Kinase MB (Mass) 5.8 ng/mL (0.0-3.6) Creatine Kinase MB Relative Index 2.8 % (0-4) Total Protein 6.7 g/dL (6.4-8.2) Albumin 3.2 g/dL (3.4-5.0) Albumin/Globulin Ratio 0.9 (1.0-1.7) Urine Collection Type U cath Urine Color Yellow Urine Clarity Clear Urine pH 6.0 Urine Specific [place] 1.025 Urine Protein 30 mg/dL (NEG-TRACE) Urine Glucose (UA) Negative mg/dL (NEG) Urine Ketones (Stick) 40 mg/dL (NEG) Urine Blood Negative (NEG) Urine Nitrite Negative (NEG) Urine Bilirubin Moderate (NEG) Urine Urobilinogen Dipstick 1.0 mg/dL (0.2 mg/dL) Urine Leukocyte Esterase Negative (NEG) Urine RBC 0 /HPF (0-2) Urine WBC Rare /HPF (0-4) Urine Squamous Epithelial Cells Mod /LPF Urine Bacteria 0 /HPF (0-FEW) Urine Mucus Mod /LPF Influenza Type A Antigen Negative (NEGATIVE) Influenza Type B Antigen Negative (NEGATIVE) White Blood Count 10.5 x10^3/uL (4.0-11.0) Red Blood Count 4.46 x10^6/uL (3.50-5.40) Hemoglobin 12.3 g/dL (12.0-15.5) Hematocrit 38.7 % (36.0-47.0) Mean Corpuscular Volume 87 fL (79-100) Mean Corpuscular Hemoglobin 28 pg (25-35) Mean Corpuscular Hemoglobin Concent 32 g/dL (31-37) Red Cell Distribution Width 16.4 % (11.5-14.5) Platelet Count 288 x10^3/uL (140-400) Neutrophils (%) (Auto) 84 % (31-73) Lymphocytes (%) (Auto) 10 % (24-48) Monocytes (%) (Auto) 6 % (0-9) Eosinophils (%) (Auto) 0 % (0-3) Basophils (%) (Auto) 1 % (0-3) Neutrophils # (Auto) 8.8 x10^3uL (1.8-7.7) Lymphocytes # (Auto) 1.0 x10^3/uL (1.0-4.8) Monocytes # (Auto) 0.6 x10^3/uL (0.0-1.1) Eosinophils # (Auto) 0.0 x10^3/uL (0.0-0.7) Basophils # (Auto) 0.1 x10^3/uL (0.0-0.2) Lactic Acid Level 1.7 mmol/L (0.4-2.0) Troponin I Quantitative 0.027 ng/mL (0.000-0.055) Glucose (Fingerstick) 388 mg/dL (70-99) Test 03/15/19 21:46 03/16/19 04:45 03/16/19 07:39 Glucose (Fingerstick) 123 mg/dL (70-99) 94 mg/dL (70-99) White Blood Count 8.8 x10^3/uL (4.0-11.0) Red Blood Count 3.93 x10^6/uL (3.50-5.40) Hemoglobin 11.0 g/dL (12.0-15.5) Hematocrit 34.0 % (36.0-47.0) Mean Corpuscular Volume 87 fL (79-100) Mean Corpuscular Hemoglobin 28 pg (25-35) Mean Corpuscular Hemoglobin Concent 32 g/dL (31-37) Red Cell Distribution Width 16.5 % (11.5-14.5) Platelet Count 256 x10^3/uL (140-400) Neutrophils (%) (Auto) 72 % (31-73) Lymphocytes (%) (Auto) 19 % (24-48) Monocytes (%) (Auto) 7 % (0-9) Eosinophils (%) (Auto) 1 % (0-3) Basophils (%) (Auto) 1 % (0-3) Neutrophils # (Auto) 6.4 x10^3uL (1.8-7.7) Lymphocytes # (Auto) 1.6 x10^3/uL (1.0-4.8) Monocytes # (Auto) 0.6 x10^3/uL (0.0-1.1) Eosinophils # (Auto) 0.1 x10^3/uL (0.0-0.7) Basophils # (Auto) 0.1 x10^3/uL (0.0-0.2) Sodium Level 142 mmol/L (136-145) Potassium Level 3.5 mmol/L (3.5-5.1) Chloride Level 108 mmol/L (98-107) Carbon Dioxide Level 25 mmol/L (21-32) Anion Gap 9 (6-14) Blood Urea Nitrogen 42 mg/dL (7-20) Creatinine 0.8 mg/dL (0.6-1.0) Estimated GFR (Cockcroft-Gault) 67.8 BUN/Creatinine Ratio 53 (6-20) Glucose Level 104 mg/dL (70-99) Calcium Level 8.3 mg/dL (8.5-10.1) Total Bilirubin 0.8 mg/dL (0.2-1.0) Aspartate Amino Transf (AST/SGOT) 40 U/L (15-37) Alanine Aminotransferase (ALT/SGPT) 26 U/L (14-59) Alkaline Phosphatase 109 U/L (46-116) Total Protein 6.2 g/dL (6.4-8.2) Albumin 2.7 g/dL (3.4-5.0) Albumin/Globulin Ratio 0.8 (1.0-1.7) Medications Current Medications Sodium Chloride 1,000 ml @ 1,000 mls/hr 1X ONCE IV Last administered on 03/15/19at 15:06; Start 03/15/19 at 15:00; Stop 03/15/19 at 15:59; Status DC Clotrimazole (Mycelex) 10 mg 5XDAY MM Last administered on 03/15/19at 22:11; Start 03/15/19 at 22:00 Insulin Human Lispro (HumaLOG) 0-7 UNITS TIDWMEALS SQ ; Start 03/16/19 at 08:00 Dextrose (Dextrose 50%-Water Syringe) 12.5 gm PRN Q15MIN PRN IV SEE COMMENTS; Start 03/15/19 at 20:30 Insulin Glargine (Lantus) 4 units QHS SQ ; Start 03/15/19 at 21:00 Sodium Chloride 1,000 ml @ 75 mls/hr 1X ONCE IV Last administered on 03/15/19at 22:06; Start 03/15/19 at 20:30; Stop 03/16/19 at 09:49; Status DC Lidocaine (Lidoderm) 1 patch DAILY TD ; Start 03/16/19 at 09:00 Miscellaneous (Lidoderm Patch Removal) 1 ea QHS MC ; Start 03/15/19 at 21:00 Acetaminophen (Tylenol) 650 mg PRN Q6HRS PRN PO pain; Start 03/15/19 at 20:30 Ibuprofen (Motrin) 400 mg PRN Q6HRS PRN PO INFLAMMATION; Start 03/15/19 at 20:30 Acetaminophen (Tylenol) 500 mg PRN Q6HRS PRN PO MILD PAIN / TEMP; Start 03/16/19 at 08:45 Ondansetron HCl (Zofran) 4 mg PRN Q6HRS PRN IV NAUSEA/VOMITING; Start 03/16/19 at 08:45 Ondansetron HCl (Zofran Odt) 4 mg PRN Q6HRS PRN PO NAUSEA/VOMITING; Start 03/16/19 at 08:45 Vitals/I & O Vital Sign - Last 24 Hours 03/15/19 03/15/19 03/15/19 03/15/19 14:10 18:42 19:00 19:23 Temp 97.6 97.9 98.2 97.6 97.9 98.2 Pulse 98 93 85 Resp 16 20 16 B/P (MAP) 104/76 (85) 131/62 (85) 108/46 (66) Pulse Ox 97 95 95 O2 Delivery Room Air Room Air Room Air Room Air 03/15/19 03/16/19 03/16/19 03/16/19 23:20 03:18 07:00 08:00 Temp 98.3 97.7 98.0 98.3 97.7 98.0 Pulse 79 82 76 Resp 16 16 14 B/P (MAP) 104/48 (66) 145/49 (81) 143/64 (90) Pulse Ox 96 94 94 O2 Delivery Room Air Room Air Room Air Room Air Intake and Output 03/15/19 03/15/19 03/16/19 15:00 23:00 07:00 Intake Total 1180 ml 200 ml Output Total 0 ml Balance 1180 ml 200 ml ZOYA MUNOZ MD Mar 16, 2019 10:52
[2019-03-16 11:00] VITALS: BP 162/75
[2019-03-16 15:00] VITALS: BP 152/65
[2019-03-16 19:22] VITALS: BP 134/50
[2019-03-16] MEDS: INSULIN GLARGINE 300 UNITS/3 ML INSULN.PEN. SQ SCH (21:00)
[2019-03-16] MEDS: PATCH REMOVAL. MC SCH (21:00)
[2019-03-16 22:51] VITALS: BP 133/43
--- NOTE | 2019-03-16 23:49 | NUR ---
Patient transferred to Room 534 per bed. belongings taken with patient. report given to YOVANI Flores.
[2019-03-17 00:12] LABS: HEMOGLOBIN A1C 7.2 % (4.8-5.6)
[2019-03-17 02:57] VITALS: BP 116/79
[2019-03-17] MEDS: CLOTRIMAZOLE 10 MG TROCHE. MM SCH ×5 (05:05→22:03)
[2019-03-17 07:56] VITALS: BP 115/49
[2019-03-17] MEDS: INSULIN LISPRO 300 UNITS/3 ML INSULN.PEN. SQ SCH ×3 (08:00→17:00)
[2019-03-17] MEDS: LIDOCAINE (700MG/PATCH) PATCH. TD SCH (08:48)
--- NOTE | 2019-03-17 08:52 | NUR ---
Patient did not eat enough food to balance the insulin-Held insulin at this time.
[2019-03-17] MEDS: IV NORMAL SALINE 1000ML BAG 1,000 ML IV SCH ×2 (08:56→21:58)
--- NOTE | 2019-03-17 09:37 | PDOC ---
PROGRESS NOTES Chief Complaint Chief Complaint CC: Found down covered in excrement by sister, lives at home, Noninjury fall History of Present Illness History of Present Illness Pt seen and examined this morning, sitting upright in bed eating She is alert and oriented to self, knew the president but not the date/year or where she was. Denies any complaints Vitals Vitals Vital Signs Date Time Temp Pulse Resp B/P (MAP) Pulse Ox O2 Delivery O2 Flow Rate FiO2 03/17/19 07:56 98.1 76 115/49 (71) 94 Room Air 98.1 03/17/19 02:57 18 Physical Exam General: Alert, Cooperative, No acute distress, Other (confused, orientedx1) Heart: Regular rate, Normal S1, Normal S2, No murmurs Lungs: Clear, Other (no crackles or wheezing) Abdomen: Normal bowel sounds, Soft, No tenderness Extremities: No clubbing, No cyanosis, No edema, Normal pulses Skin: No rashes, No breakdown, No significant lesion Labs LABS Laboratory Tests Test 03/16/19 11:04 03/16/19 16:47 03/16/19 20:36 03/17/19 07:32 Glucose (Fingerstick) 118 mg/dL (70-99) 244 mg/dL (70-99) 262 mg/dL (70-99) 124 mg/dL (70-99) Review of Systems Review of Systems Denies N/V Denies CP or SOA Denies F/C Assessment and Plan Assessmemt and Plan Assessment: Non-injury fall, found down for unknown duration of time covered in excrement AMS: Encephalopathy vs dementia Thrush Diabetes 03/15 CT showing mild degenerative changes of c spine, atrophy and chronic ischemic changes of white matter, (-) for acute process 03/15 CXR negative for acute processes, ectatic tortuous aorta vs hiatal hernia Plan: SW consulted for SNU eval NS @75 started Recheck CK and labs Clotrimazole SSI, a1c 7.2 PT/OT ordered Pain control Regular diet Problems Medical Problems: (1) Altered mental status Status: Acute Comment Review of Relevant I have reviewed the following items licha (where applicable) has been applied. Labs Laboratory Tests Test 03/15/19 14:59 03/15/19 15:02 03/15/19 15:20 03/15/19 18:30 Sodium Level 146 mmol/L (136-145) Potassium Level 4.1 mmol/L (3.5-5.1) Chloride Level 104 mmol/L (98-107) Carbon Dioxide Level 24 mmol/L (21-32) Anion Gap 18 (6-14) Blood Urea Nitrogen 50 mg/dL (7-20) Creatinine 0.9 mg/dL (0.6-1.0) Estimated GFR (Cockcroft-Gault) 59.2 BUN/Creatinine Ratio 56 (6-20) Glucose Level 141 mg/dL (70-99) Calcium Level 8.9 mg/dL (8.5-10.1) Magnesium Level 2.7 mg/dL (1.8-2.4) Total Bilirubin 1.0 mg/dL (0.2-1.0) Aspartate Amino Transf (AST/SGOT) 49 U/L (15-37) Alanine Aminotransferase (ALT/SGPT) 37 U/L (14-59) Alkaline Phosphatase 141 U/L (46-116) Creatine Kinase 210 U/L (26-192) Creatine Kinase MB (Mass) 5.8 ng/mL (0.0-3.6) Creatine Kinase MB Relative Index 2.8 % (0-4) Total Protein 6.7 g/dL (6.4-8.2) Albumin 3.2 g/dL (3.4-5.0) Albumin/Globulin Ratio 0.9 (1.0-1.7) Urine Collection Type U cath Urine Color Yellow Urine Clarity Clear Urine pH 6.0 Urine Specific [place] 1.025 Urine Protein 30 mg/dL (NEG-TRACE) Urine Glucose (UA) Negative mg/dL (NEG) Urine Ketones (Stick) 40 mg/dL (NEG) Urine Blood Negative (NEG) Urine Nitrite Negative (NEG) Urine Bilirubin Moderate (NEG) Urine Urobilinogen Dipstick 1.0 mg/dL (0.2 mg/dL) Urine Leukocyte Esterase Negative (NEG) Urine RBC 0 /HPF (0-2) Urine WBC Rare /HPF (0-4) Urine Squamous Epithelial Cells Mod /LPF Urine Bacteria 0 /HPF (0-FEW) Urine Mucus Mod /LPF Influenza Type A Antigen Negative (NEGATIVE) Influenza Type B Antigen Negative (NEGATIVE) White Blood Count 10.5 x10^3/uL (4.0-11.0) Red Blood Count 4.46 x10^6/uL (3.50-5.40) Hemoglobin 12.3 g/dL (12.0-15.5) Hematocrit 38.7 % (36.0-47.0) Mean Corpuscular Volume 87 fL (79-100) Mean Corpuscular Hemoglobin 28 pg (25-35) Mean Corpuscular Hemoglobin Concent 32 g/dL (31-37) Red Cell Distribution Width 16.4 % (11.5-14.5) Platelet Count 288 x10^3/uL (140-400) Neutrophils (%) (Auto) 84 % (31-73) Lymphocytes (%) (Auto) 10 % (24-48) Monocytes (%) (Auto) 6 % (0-9) Eosinophils (%) (Auto) 0 % (0-3) Basophils (%) (Auto) 1 % (0-3) Neutrophils # (Auto) 8.8 x10^3uL (1.8-7.7) Lymphocytes # (Auto) 1.0 x10^3/uL (1.0-4.8) Monocytes # (Auto) 0.6 x10^3/uL (0.0-1.1) Eosinophils # (Auto) 0.0 x10^3/uL (0.0-0.7) Basophils # (Auto) 0.1 x10^3/uL (0.0-0.2) Lactic Acid Level 1.7 mmol/L (0.4-2.0) Troponin I Quantitative 0.027 ng/mL (0.000-0.055) Glucose (Fingerstick) 388 mg/dL (70-99) Test 03/15/19 21:46 03/16/19 04:45 03/16/19 07:39 03/16/19 11:04 Glucose (Fingerstick) 123 mg/dL (70-99) 94 mg/dL (70-99) 118 mg/dL (70-99) White Blood Count 8.8 x10^3/uL (4.0-11.0) Red Blood Count 3.93 x10^6/uL (3.50-5.40) Hemoglobin 11.0 g/dL (12.0-15.5) Hematocrit 34.0 % (36.0-47.0) Mean Corpuscular Volume 87 fL (79-100) Mean Corpuscular Hemoglobin 28 pg (25-35) Mean Corpuscular Hemoglobin Concent 32 g/dL (31-37) Red Cell Distribution Width 16.5 % (11.5-14.5) Platelet Count 256 x10^3/uL (140-400) Neutrophils (%) (Auto) 72 % (31-73) Lymphocytes (%) (Auto) 19 % (24-48) Monocytes (%) (Auto) 7 % (0-9) Eosinophils (%) (Auto) 1 % (0-3) Basophils (%) (Auto) 1 % (0-3) Neutrophils # (Auto) 6.4 x10^3uL (1.8-7.7) Lymphocytes # (Auto) 1.6 x10^3/uL (1.0-4.8) Monocytes # (Auto) 0.6 x10^3/uL (0.0-1.1) Eosinophils # (Auto) 0.1 x10^3/uL (0.0-0.7) Basophils # (Auto) 0.1 x10^3/uL (0.0-0.2) Sodium Level 142 mmol/L (136-145) Potassium Level 3.5 mmol/L (3.5-5.1) Chloride Level 108 mmol/L (98-107) Carbon Dioxide Level 25 mmol/L (21-32) Anion Gap 9 (6-14) Blood Urea Nitrogen 42 mg/dL (7-20) Creatinine 0.8 mg/dL (0.6-1.0) Estimated GFR (Cockcroft-Gault) 67.8 BUN/Creatinine Ratio 53 (6-20) Glucose Level 104 mg/dL (70-99) Hemoglobin A1c 7.2 % (4.8-5.6) Calcium Level 8.3 mg/dL (8.5-10.1) Total Bilirubin 0.8 mg/dL (0.2-1.0) Aspartate Amino Transf (AST/SGOT) 40 U/L (15-37) Alanine Aminotransferase (ALT/SGPT) 26 U/L (14-59) Alkaline Phosphatase 109 U/L (46-116) Total Protein 6.2 g/dL (6.4-8.2) Albumin 2.7 g/dL (3.4-5.0) Albumin/Globulin Ratio 0.8 (1.0-1.7) Test 03/16/19 16:47 03/16/19 20:36 03/17/19 07:32 Glucose (Fingerstick) 244 mg/dL (70-99) 262 mg/dL (70-99) 124 mg/dL (70-99) Laboratory Tests Test 03/16/19 11:04 03/16/19 16:47 03/16/19 20:36 03/17/19 07:32 Glucose (Fingerstick) 118 mg/dL (70-99) 244 mg/dL (70-99) 262 mg/dL (70-99) 124 mg/dL (70-99) Microbiology 03/15/19 Blood Culture - Preliminary, Resulted NO GROWTH AFTER 1 DAY Medications Current Medications Sodium Chloride 1,000 ml @ 1,000 mls/hr 1X ONCE IV Last administered on 03/15/19at 15:06; Start 03/15/19 at 15:00; Stop 03/15/19 at 15:59; Status DC Clotrimazole (Mycelex) 10 mg 5XDAY MM Last administered on 03/15/19at 22:11; Start 03/15/19 at 22:00 Insulin Human Lispro (HumaLOG) 0-7 UNITS TIDWMEALS SQ ; Start 03/16/19 at 08:00 Dextrose (Dextrose 50%-Water Syringe) 12.5 gm PRN Q15MIN PRN IV SEE COMMENTS; Start 03/15/19 at 20:30 Insulin Glargine (Lantus) 4 units QHS SQ ; Start 03/15/19 at 21:00 Sodium Chloride 1,000 ml @ 75 mls/hr 1X ONCE IV Last administered on 03/15/19at 22:06; Start 03/15/19 at 20:30; Stop 03/16/19 at 09:49; Status DC Lidocaine (Lidoderm) 1 patch DAILY TD Last administered on 03/17/19at 08:48; Start 03/16/19 at 09:00 Miscellaneous (Lidoderm Patch Removal) 1 ea QHS MC ; Start 03/15/19 at 21:00 Acetaminophen (Tylenol) 650 mg PRN Q6HRS PRN PO pain; Start 03/15/19 at 20:30; Stop 03/16/19 at 13:10; Status DC Ibuprofen (Motrin) 400 mg PRN Q6HRS PRN PO INFLAMMATION; Start 03/15/19 at 20:30 Acetaminophen (Tylenol) 500 mg PRN Q6HRS PRN PO MILD PAIN / TEMP; Start 03/16/19 at 08:45 Ondansetron HCl (Zofran) 4 mg PRN Q6HRS PRN IV NAUSEA/VOMITING; Start 03/16/19 at 08:45 Ondansetron HCl (Zofran Odt) 4 mg PRN Q6HRS PRN PO NAUSEA/VOMITING; Start 03/16/19 at 08:45 Sodium Chloride 1,000 ml @ 75 mls/hr [id number] IV Last administered on 03/17/19at 08:56; Start 03/17/19 at 08:00 Vitals/I & O Vital Sign - Last 24 Hours 03/16/19 03/16/19 03/16/19 03/16/19 11:00 15:00 19:22 19:30 Temp 98.2 97.7 97.5 98.2 97.7 97.5 Pulse 81 82 74 Resp 16 14 14 B/P (MAP) 162/75 (104) 152/65 (94) 134/50 (78) Pulse Ox 94 96 94 O2 Delivery Room Air Room Air Room Air Room Air 03/16/19 03/17/19 03/17/19 22:51 02:57 07:56 Temp 98.0 98.2 98.1 98.0 98.2 98.1 Pulse 83 76 76 Resp 16 18 B/P (MAP) 133/43 (73) 116/79 (91) 115/49 (71) Pulse Ox 99 96 94 O2 Delivery Room Air Room Air Room Air Intake and Output 03/16/19 03/16/19 03/17/19 14:59 22:59 06:59 Intake Total 0 ml Output Total 250 ml 225 ml Balance -250 ml -225 ml 0 ml LAURE CORREA III DO Mar 17, 2019 09:37
[2019-03-17 11:09] VITALS: BP 123/38
[2019-03-17 15:00] VITALS: BP 132/53
--- NOTE | 2019-03-17 15:14 | NUR ---
SW consulted to evaluate home situations. Chart reviewed and discussed with RN. Pt lives at home alone and PT/OT recommends SNU. Spoke with pt at bedside and she was not able to tell SW where she lived prior to coming [facility]. Pt stated she was not sure if she has a home anymore and expressed concerns. Pt reported she was "never by choice", and doesn't have family/friends. Discussed with pt about SNU and options. Pt agreeable with SW sending referral to various facilities as she did not think she can return home at this time. This is pt's first admission and no family/contact informations are listed. SW phoned and faxed referral to [facility] and [place] [facility]. Pt admission and acceptance pending. ANGIE will continue to follow.
[2019-03-17 19:00] VITALS: BP 129/38
[2019-03-17] MEDS: PATCH REMOVAL. MC SCH (21:00)
[2019-03-17] MEDS: INSULIN GLARGINE 300 UNITS/3 ML INSULN.PEN. SQ SCH (22:01)
[2019-03-17 23:00] VITALS: BP 134/66
[2019-03-18 03:00] VITALS: BP 130/65
[2019-03-18] MEDS: CLOTRIMAZOLE 10 MG TROCHE. MM SCH ×3 (04:58→14:00)
[2019-03-18 07:00] VITALS: BP 144/54
[2019-03-18] MEDS: INSULIN LISPRO 300 UNITS/3 ML INSULN.PEN. SQ SCH ×2 (08:00→12:00)
[2019-03-18 10:18] LABS: BASO # 0.1 x10^3/uL (0.0-0.2); BASO % 1 % (0-3); EOS # 0.2 x10^3/uL (0.0-0.7); EOS % 3 % (0-3); HEMATOCRIT 36.1 % (36.0-47.0); HEMOGLOBIN 11.8 g/dL (12.0-15.5); LYMPH # 1.5 x10^3/uL (1.0-4.8); LYMPH % 18 % (24-48); MEAN CORPUSCULAR HEMOGLOBIN 28 pg (25-35); MEAN CORPUSCULAR HGB CONC 33 g/dL (31-37); MEAN CORPUSCULAR VOLUME 87 fL (79-100); MONO # 0.7 x10^3/uL (0.0-1.1); MONO % 8 % (0-9); NEUT % 71 % (31-73); PLATELET COUNT 218 x10^3/uL (140-400); RED BLOOD COUNT 4.16 x10^6/uL (3.50-5.40); RED CELL DISTRIBUTION WIDTH 16.5 % (11.5-14.5); WHITE BLOOD COUNT 8.5 x10^3/uL (4.0-11.0)
[2019-03-18] MEDS: LIDOCAINE (700MG/PATCH) PATCH. TD SCH (10:33)
[2019-03-18 10:34] LABS: CALCIUM 8.1 mg/dL (8.5-10.1); CREATININE 0.9 mg/dL (0.6-1.0); GFR 59.2; POTASSIUM 3.5 mmol/L (3.5-5.1)
[2019-03-18 11:00] VITALS: BP 170/65
[2019-03-18] MEDS: IV NORMAL SALINE 1000ML BAG 1,000 ML IV SCH (11:00)
--- NOTE | 2019-03-18 12:17 | PDOC3 ---
Discharge Summary Visit Information Date of Admission: Mar 15, 2019 Date of Discharge: Mar 18, 2019 Admitting Diagnosis: found down Final Diagnosis Non-injury fall, found down for unknown duration of time and covered in excrement acute encephalopathy improved at discharge dementia, Thrush Diabetes 2 Problems Medical Problems: (1) Altered mental status Status: Acute Brief Hospital Course Allergies Allergies Coded Allergies Type Severity Reaction Last Updated Verified No Known Drug Allergies 03/15/19 No Vital Signs Vital Signs Date Time Temp Pulse Resp B/P (MAP) Pulse Ox O2 Delivery O2 Flow Rate FiO2 03/18/19 11:00 84 16 170/65 (100) 95 Room Air 03/18/19 07:00 98.7 98.7 Lab Results Laboratory Tests Test 03/16/19 16:47 03/16/19 20:36 03/17/19 07:32 03/17/19 09:00 Glucose (Fingerstick) 244 mg/dL (70-99) 262 mg/dL (70-99) 124 mg/dL (70-99) Creatine Kinase 211 U/L (26-192) Test 03/17/19 11:34 03/17/19 16:51 03/17/19 20:50 03/18/19 07:28 Glucose (Fingerstick) 180 mg/dL (70-99) 141 mg/dL (70-99) 177 mg/dL (70-99) 102 mg/dL (70-99) Test 03/18/19 09:40 White Blood Count 8.5 x10^3/uL (4.0-11.0) Red Blood Count 4.16 x10^6/uL (3.50-5.40) Hemoglobin 11.8 g/dL (12.0-15.5) Hematocrit 36.1 % (36.0-47.0) Mean Corpuscular Volume 87 fL (79-100) Mean Corpuscular Hemoglobin 28 pg (25-35) Mean Corpuscular Hemoglobin Concent 33 g/dL (31-37) Red Cell Distribution Width 16.5 % (11.5-14.5) Platelet Count 218 x10^3/uL (140-400) Neutrophils (%) (Auto) 71 % (31-73) Lymphocytes (%) (Auto) 18 % (24-48) Monocytes (%) (Auto) 8 % (0-9) Eosinophils (%) (Auto) 3 % (0-3) Basophils (%) (Auto) 1 % (0-3) Neutrophils # (Auto) 6.0 x10^3uL (1.8-7.7) Lymphocytes # (Auto) 1.5 x10^3/uL (1.0-4.8) Monocytes # (Auto) 0.7 x10^3/uL (0.0-1.1) Eosinophils # (Auto) 0.2 x10^3/uL (0.0-0.7) Basophils # (Auto) 0.1 x10^3/uL (0.0-0.2) Sodium Level 146 mmol/L (136-145) Potassium Level 3.5 mmol/L (3.5-5.1) Chloride Level 110 mmol/L (98-107) Carbon Dioxide Level 28 mmol/L (21-32) Anion Gap 8 (6-14) Blood Urea Nitrogen 19 mg/dL (7-20) Creatinine 0.9 mg/dL (0.6-1.0) Estimated GFR (Cockcroft-Gault) 59.2 Glucose Level 181 mg/dL (70-99) Calcium Level 8.1 mg/dL (8.5-10.1) Laboratory Tests Test 03/17/19 16:51 03/17/19 20:50 03/18/19 07:28 03/18/19 09:40 Glucose (Fingerstick) 141 mg/dL (70-99) 177 mg/dL (70-99) 102 mg/dL (70-99) White Blood Count 8.5 x10^3/uL (4.0-11.0) Red Blood Count 4.16 x10^6/uL (3.50-5.40) Hemoglobin 11.8 g/dL (12.0-15.5) Hematocrit 36.1 % (36.0-47.0) Mean Corpuscular Volume 87 fL (79-100) Mean Corpuscular Hemoglobin 28 pg (25-35) Mean Corpuscular Hemoglobin Concent 33 g/dL (31-37) Red Cell Distribution Width 16.5 % (11.5-14.5) Platelet Count 218 x10^3/uL (140-400) Neutrophils (%) (Auto) 71 % (31-73) Lymphocytes (%) (Auto) 18 % (24-48) Monocytes (%) (Auto) 8 % (0-9) Eosinophils (%) (Auto) 3 % (0-3) Basophils (%) (Auto) 1 % (0-3) Neutrophils # (Auto) 6.0 x10^3uL (1.8-7.7) Lymphocytes # (Auto) 1.5 x10^3/uL (1.0-4.8) Monocytes # (Auto) 0.7 x10^3/uL (0.0-1.1) Eosinophils # (Auto) 0.2 x10^3/uL (0.0-0.7) Basophils # (Auto) 0.1 x10^3/uL (0.0-0.2) Sodium Level 146 mmol/L (136-145) Potassium Level 3.5 mmol/L (3.5-5.1) Chloride Level 110 mmol/L (98-107) Carbon Dioxide Level 28 mmol/L (21-32) Anion Gap 8 (6-14) Blood Urea Nitrogen 19 mg/dL (7-20) Creatinine 0.9 mg/dL (0.6-1.0) Estimated GFR (Cockcroft-Gault) 59.2 Glucose Level 181 mg/dL (70-99) Calcium Level 8.1 mg/dL (8.5-10.1) Brief Hospital Course Ms. Quinonez is a 88 old female, found on floor by neighbor, pt was confused on admit, more clear on discharge, but still dementia, poor recall, off on orientation, and weak, needs rehab - PT and OT for weakness, in the future, may need placement, will need home safety OT eval before SNU discharge. Discharge Information Condition at Discharge: Improved Follow Up: Weeks Disposition/Orders: D/C to Another Facility Patient Instructions Patient Instructions > 30 min face to face time to SNU she is worried, but she should do well CLARI SETH MD Mar 18, 2019 12:17
[2019-03-18] MEDS ORDERED: CLOT10TR MM (13:19)
[2019-03-18] MEDS ORDERED: INSU100I13 SQ (13:19)
[2019-03-18] MEDS ORDERED: IBUP-1027 PO (13:19)
[2019-03-18] MEDS ORDERED: ACET500T68 PO (13:19)
[2019-03-18] MEDS ORDERED: LIDO700A39 TD (13:19)
--- NOTE | 2019-03-18 13:20 | SNU/HH DC ---
DISCHARGE ORDERS DISCHARGE INFORMATION: DISCHARGE DATE: Mar 18, 2019 FINAL DIAGNOSIS Problems Medical Problems: (1) Altered mental status Status: Acute CODE STATUS: Code Status: Full ASSISTED: SNF STAY <30 DAYS: Yes POST DISCHARGE ORDERS: ACTIVITY ORDERS: No restrictions WEIGHT BEARING STATUS: No restrictions DIET AFTER DISCHARGE: Regular FOLLOW-UP: PHYSICIAN FOLLOW-UP: primary care 2 weeks TREATMENT/EQUIPMENT ORDERS: Physical Therapy For: Evalulation/Treatment Occupational Therapy For: Evaluation/Treatment DISCHARGE MEDICATIONS: Home Meds Active Scripts Ibuprofen (IBUPROFEN) 400 Mg Tablet, 400 MG PO PRN Q6HRS PRN for INFLAMMATION, #30 TAB Prov:CLARI SETH MD 03/18/19 Acetaminophen (ACETAMINOPHEN) 500 Mg Tablet, 500 MG PO PRN Q6HRS PRN for MILD PAIN / TEMP, #30 TAB Prov:CLARI SETH MD 03/18/19 Lidocaine (Lidocaine) 1 Each Adh..patch, 1 PATCH TD DAILY for pain, #7 PATCH Prov:CLARI SETH MD 03/18/19 Clotrimazole (CLOTRIMAZOLE) 10 Mg Shea, 10 MG MM 5XDAY for thrush for 7 Days, #35 LOZENGE Prov:CLARI SETH MD 03/18/19 Insulin Glargine,Hum.rec.anlog (LANTUS SOLOSTAR) 100 Unit/1 Ml Insuln.pen, 4 UNITS SQ QHS for dm2 for 30 Days, EACH Prov:CLARI SETH MD 03/18/19 CLARI SETH MD Mar 18, 2019 13:20
--- NOTE | 2019-03-18 15:04 | NUR ---
ANGIE following pt. Pt has been accepted at [facility]. 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 Pt aware of plans and agreeable. Choice and rights forms verbally consented by pt and copies on chart. [facility] aware pt will potentially transition to LTC after SNU. Packet on chart. ANJALI PINA.
--- NOTE | 2019-03-18 15:15 | NUR ---
Discharge Note: Patient was discharged/transferred to [facility], via wheelchair van. Patients IV was discontinued without any complications by INCREMENT MANAGER. Patient was very tearful about going to another facility. This RN tried to explain why to the patient and she said she understood but was still sad. Patient did not have any personal belongings to take with her. Patient was transferred via wheelchair van to [facility]. Called [facility] and gave report via phone to YOAVNI Aponte.
== END 2019-03-18 15:18 | DRG 71 ==
LOC: ER 14:10 → 2 SOUTH 15:25 → 5 NORTH 03-16 23:36
PROVIDERS: ADMIT Internal Medicine; ATTEND Internal Medicine
DX: G93.41 Metabolic encephalopathy (principal); E87.0 Hyperosmolality and hypernatremia; B37.0 Candidal stomatitis; E11.9 Type 2 diabetes mellitus without complications; F03.90 Unspecified dementia, unspecified severity, without behavioral disturbance, psychotic disturbance, mood disturbance, and anxiety; Y92.009 Unspecified place in unspecified non-institutional (private) residence as the place of occurrence of the external cause; W18.39XA Other fall on same level, initial encounter; Y93.89 Activity, other specified; Y99.8 Other external cause status
CPT/HCPCS: 36415; 70450; 71045; 72125; 80048; 80053; 81001; 82550; 82553; 82962; 83036; 83605; 83735; 84484; 85025; 87040; 87804; 93005; 96360; 96361; J1815; J7030; 97116; 97530; 97535; 99285-25